=== PATIENT | male | born 1970 | race Caucasian/White ===

== ENCOUNTER 2021-05-02 21:41 | Emergency (ER) | payer OTHER ==
[~2021-05-02] VITALS: Ht 160 cm; Wt 74.0 kg
[2021-05-02 21:56] VITALS: BP 127/76
== END 2021-05-02 23:19 | disposition left against medical advice (07) ==
LOC: ER 21:41
DX: Z53.21 Procedure and treatment not carried out due to patient leaving prior to being seen by health care provider (principal)